=== PATIENT | male | born 1965 | race Asian ===

== ENCOUNTER 2020-04-02 08:04 | Day surgery (SDC) | payer MEDICAID, SELFPAY ==
[2020-03-27 15:52] VITALS: BMI 27.2
[2020-03-28 09:46] VITALS: BMI 27.3
--- NOTE | 2020-03-28 09:55 | HO.ANESPROP2 ---
Documented by User: Mariposa Smallsney 03/28/20 09:56 HPI - Anesthesia Eval Consult details Narrative: 55yo M for R Knee arthroscopy PMFSH Past Medical History Medical History Heartburn HTN (hypertension) Family History Family history of problems with anesthesia: Unobtainable Surgical History Surgical History History of oral surgery History of Problems with Anesthesia: Unobtainable Social History Social History Smoking Status: Former smoker Smoking Quit Date: 2017 Use of substances other than those prescribed or required for medical reasons: No Advance Directives: No Advance Directives Information Provided: Yes Advance Directives on File: No Meds Allergies Allergy/AdvReac Type Severity Reaction Status Date / Time No Known Allergies Allergy Verified 03/28/20 09:57 Home Medications Medication Instructions Recorded Confirmed Type valsartan-hydrochlorothiazide 1 tab PO DAILY 03/27/20 04/02/20 History cholecalciferol (vitamin D3) 25 mcg PO DAILY 03/28/20 04/02/20 History [Vitamin D3] vitamin B complex 1 tab PO DAILY 03/28/20 04/02/20 History Exam Exam Date and Time: March 28, 2020 0955 Height,Weight and Vital Signs: Height 5 ft 7 in Weight 79.379 kg Assessment and Plan Assessment Anesthesia Assessment: Chart Reviewed Documented by User: Riley Soriano MD 04/02/20 12:14 PMF Past Medical History Medical History Heartburn HTN (hypertension) Surgical History Surgical History History of oral surgery Social History Social History Smoking Status: Former smoker Smoking Quit Date: 2017 Use of substances other than those prescribed or required for medical reasons: No Advance Directives: No Advance Directives Information Provided: Yes Advance Directives on File: No Meds Allergies Allergy/AdvReac Type Severity Reaction Status Date / Time No Known Allergies Allergy Verified 03/28/20 09:57 Home Medications Medication Instructions Recorded Confirmed Type valsartan-hydrochlorothiazide 1 tab PO DAILY 03/27/20 04/02/20 History cholecalciferol (vitamin D3) 25 mcg PO DAILY 03/28/20 04/02/20 History [Vitamin D3] vitamin B complex 1 tab PO DAILY 03/28/20 04/02/20 History Exam Airway Mallampati Class: I TM Dist: >3cm Neck ROM: Full Loose/Missing/Broken Teeth: No Heart: rrr Lungs: nl Other: ao3 Assessment and Plan Assessment Anesthesia Assessment: Anesthesia Plan Discussed, Consent Obtained and Chart Reviewed Final Anesthetic Review NPO: Yes Final Preanesthetic Review: No Changes in Pt Med Stat, Meds & Allergies Reviewed, Consent Obtained/Reviewed, Med/Surg/Anes Hx Reviewed and Anes Risks/Benef Reviewed Patient Risk: Low Procedure Risk: Low Anesthetic Plan Anesthetic Plan: GA Disposition: Standard PACU
--- NOTE | 2020-04-02 08:18 | PC.NURSE ---
patient drank coffee at 6am with coffee mate in it. awaiting to hear from anesthesia for plan of care
[2020-04-02 08:31] VITALS: BP 132/73; PULSE 99; RESP 16; TEMP 36.8; O2SAT 96
[2020-04-02] MEDS: Lactated Ringers 1,000 ML 100 ML IVCONT (08:44)
[2020-04-02] MEDS: ceFAZolin Sodium/Dextrose,Iso 2 GM/50 ML PIGGYBACK IV (08:49)
--- NOTE | 2020-04-02 12:13 | MHC.SHP ---
Pre-Procedural Eval Section A The patient is an INPATIENT: No Changes since office visit: No Cold of Flu in the past 2 weeks, No New Medical Problems, No Changes in Medication and No Patient answered all questions The History & Physical has been completed within 30 days and I have reviewed it.: Yes Section B Chief Complaint: medial meniscus tear right knee Allergies: Allergies Allergy/AdvReac Type Severity Reaction Status Date / Time No Known Allergies Allergy Verified 03/28/20 09:57 Plan Patient has been examined and remains a candidate for the planned procedure
--- NOTE | 2020-04-02 12:57 | PM.OP ---
Brief Operative Note Date of procedure: 04/02/20 Pre-op diagnosis: right knee medial meniscus tear Post-op diagnosis: same Procedure: right knee with partial medialo meniscectomy Implants: none Surgeon: Mark Gilliam MD Anesthesia: GETA and local Tourniquet time (min): 15 IV fluids (mL): 500 Pathology: none sent Condition: stable Disposition: PACU
[2020-04-02 13:06] VITALS: BP 118/68; PULSE 99; RESP 16; TEMP 36.4; O2SAT 99
[2020-04-02 13:11] VITALS: BP 133/88; PULSE 97; RESP 16; O2SAT 99
[2020-04-02 13:16] VITALS: BP 123/76; PULSE 97; RESP 16; O2SAT 97
[2020-04-02 13:22] VITALS: BP 122/82; PULSE 91; RESP 16; TEMP 36.4; O2SAT 97
--- NOTE | 2020-04-02 14:12 | HO.POSTANES ---
Post Anesthesia Evaluation Post Anesthesia Evaluation Vital Signs: Vital Signs Temp Pulse Resp BP Pulse Ox 04/02/20 13:22 97.5 F 91 16 122/82 97 04/02/20 13:16 97 16 123/76 97 04/02/20 13:11 97 16 133/88 99 04/02/20 13:06 97.5 F 99 16 118/68 99 04/02/20 08:31 98.2 F 99 16 132/73 96 Anesthesia: General LMA Mental Status: Awake Pain Control: Satisfactory Nausea/Vomiting: None Hydration: Adequate Anesthesia-Related Issues: No Anes. Related Issues
== END 2020-04-02 14:00 | disposition home or self-care (01) ==
PROVIDERS: Orthopaedic Surgery; PCP Family Medicine; Visit Provider Internal Medicine
PROC: (CPT 29870; principal; 2020-04-02 09:50)
DX: S83.241A Other tear of medial meniscus, current injury, right knee, initial encounter (principal); M17.11 Unilateral primary osteoarthritis, right knee; X58.XXXA Exposure to other specified factors, initial encounter; Y93.9 Activity, unspecified; Y92.9 Unspecified place or not applicable; Y99.8 Other external cause status; I10 Essential (primary) hypertension; Z79.52 Long term (current) use of systemic steroids; Z79.891 Long term (current) use of opiate analgesic
CPT/HCPCS: 29881; J0171; J0690; J1100; J2405; J3010

== ENCOUNTER 2020-04-17 12:58 | Outpatient (REF) | payer MEDICAID, SELFPAY ==
--- NOTE | 2020-04-17 14:06 | XR_ITS ---
EXAMINATION: XR FOOT, RIGHT CLINICAL INFORMATION: Pain right foot. COMPARISON: None TECHNIQUE: AP, lateral, and oblique views of the right foot. FINDINGS: There is no visible acute fracture, dislocation or subluxation seen. The soft tissues are normal. The ankle mortise and subtalar joints are normal. There is a moderate size retrocalcaneal heel spur and a small calcaneal spur. XR/XR foot RT min 3V IMPRESSION: Unremarkable right foot exam.
== END 2020-04-17 12:59 | disposition home or self-care (01) ==
LOC: HO.XRAY 12:58
PROVIDERS: Absent Provider Family Medicine; PCP Family Medicine; Referring Provider Family Medicine; Visit Provider Physician Assistant
DX: M79.671 Pain in right foot (principal); Z98.890 Other specified postprocedural states
CPT/HCPCS: 73630; 99212

== ENCOUNTER 2020-05-02 07:31 | Day surgery (SDC) | payer MEDICAID, SELFPAY ==
[2020-05-01 08:28] VITALS: BMI 27.8
--- NOTE | 2020-05-01 09:57 | P.CONAN_ITS ---
Documented by User: Mariposa Chong 05/01/20 09:58 HPI - Anesthesia Eval Consult details Narrative: 55yo M for Colonoscopy [facility] Past Medical History Medical History Heartburn HTN (hypertension) Surgical History Surgical History History of oral surgery S/P arthroscopic partial medial meniscectomy Social History Social History Smoking Status: Never smoker Second Hand Smoke Exposure: No Use of substances other than those prescribed or required for medical reasons: No Advance Directives: No Advance Directives Information Provided: Yes Advance Directives on File: No Meds Allergies Allergy/AdvReac Type Severity Reaction Status Date / Time No Known Allergies Allergy Verified 04/17/20 13:04 Home Medications Medication Instructions Recorded Confirmed Type valsartan-hydrochlorothiazide 1 tab PO DAILY 03/27/20 04/29/20 History cholecalciferol (vitamin D3) 25 mcg PO DAILY 03/28/20 04/29/20 History [Vitamin D3] vitamin B complex 1 tab PO DAILY 03/28/20 04/29/20 History Exam Exam Date and Time: May 01, 2020 0957 Height,Weight and Vital Signs: Height 5 ft 7 in Weight 80.739 kg Assessment and Plan Assessment Anesthesia Assessment: Chart Reviewed Documented by User: Lilia Hyatt 05/02/20 08:39 [facility] Past Medical History Medical History Heartburn HTN (hypertension) Surgical History Surgical History History of oral surgery S/P arthroscopic partial medial meniscectomy Social History Social History Smoking Status: Never smoker Second Hand Smoke Exposure: No Use of substances other than those prescribed or required for medical reasons: No Advance Directives: No Advance Directives Information Provided: Yes Advance Directives on File: No Meds Allergies Allergy/AdvReac Type Severity Reaction Status Date / Time No Known Allergies Allergy Verified 04/17/20 13:04 Home Medications Medication Instructions Recorded Confirmed Type valsartan-hydrochlorothiazide 1 tab PO DAILY 03/27/20 04/29/20 History cholecalciferol (vitamin D3) 25 mcg PO DAILY 03/28/20 04/29/20 History [Vitamin D3] vitamin B complex 1 tab PO DAILY 03/28/20 04/29/20 History Exam Airway Mallampati Class: II TM Dist: >3cm Neck ROM: Full Assessment and Plan Assessment Anesthesia Assessment: Anesthesia Plan Discussed and Chart Reviewed Final Anesthetic Review NPO: Yes ASA Class: II Final Preanesthetic Review: No Changes in Pt Med Stat, Meds/Allgs Chart Reviewed, Consent Obtained/Reviewed and Anes Risks/Benef Reviewed Patient Risk: Low Procedure Risk: Low Assessment/Block/Sedation in SS: Assess/Block/Sedation-SS Anesthetic Plan Anesthetic Plan: MAC: Disposition: Standard PACU
[2020-05-02 07:51] VITALS: BP 125/79; PULSE 92; RESP 16; TEMP 36.6; O2SAT 97
[2020-05-02] MEDS: Lactated Ringers 1,000 ML 100 ML IVCONT (07:58)
--- NOTE | 2020-05-02 08:27 | MHC.SHP ---
Pre-Procedural Eval Section B Chief Complaint: SCREENING,ANEMIA Details of Present Illness: for screening colonoscopy - first time no GI complaints Relevant Family History (Specify if Yes): No Relevant Social History: None Present Medications: see Short Stay Collaborative assessment Medical History: No relevant PMH History of Previous Operations: No relevant previous surgery Allergies: Allergies Allergy/AdvReac Type Severity Reaction Status Date / Time No Known Allergies Allergy Verified 04/17/20 13:04 Review of Systems Sugical H&P ROS: Negative: Constitution, Cardiovascular, Respiratory, Neurological, Psychiatric, Hem-Onc, Allergic/Immunologic, Gastrointestinal, Genitourinary, Musculoskeletal, Integumentary, Endocrine and Eyes/Ears/Nose/Throat Exam Surgical H&P Exam: Normal: HEENT, Normal: Heart, Normal: Lungs, Normal: Extremities, Normal: Abdomen, Normal: Skin and Normal: Neurological Plan Diagnosis/Plan: Unchanged Patient has been examined and remains a candidate for the planned procedure
[2020-05-02 09:08] VITALS: BP 91/25; PULSE 93; RESP 16; O2SAT 97
--- NOTE | 2020-05-02 09:14 | PM.OP ---
Brief Operative Note Date of procedure: 05/02/20 Pre-op diagnosis: screening Post-op diagnosis: other (small polyp near cecum, diverticulosis, hemorrhoids) Procedure: colonoscopy Surgeon: Wilson Weeks MD Anesthesia: MAC Estimated blood loss (mL): 0 Pathology: other (polyp) Condition: stable Disposition: PACU
[2020-05-02 09:23] VITALS: BP 126/89; PULSE 93; RESP 16; O2SAT 97
--- NOTE | 2020-05-02 09:29 | OP_ITS ---
SURGEON: Wilson Weeks MD INDICATIONS: The patient is a 55-year-old male, who is here for his 1st screening colonoscopy. He understood the technique of the procedure. He was aware of the risks, benefits, and alternatives. PREOPERATIVE DIAGNOSIS: Colon cancer screening. POSTOPERATIVE DIAGNOSIS: PROCEDURE PERFORMED: Colonoscopy with polypectomy using hot snare. ESTIMATED BLOOD LOSS: COMPLICATIONS: ANESTHESIA: ASSISTANTS: SPECIMENS: POSTOPERATIVE DIAGNOSES: 1. Small polyp about 4 mm close to the cecum at the ileocecal valve. 2. Occasional diverticula throughout the colon. 3. Internal and external hemorrhoids. DESCRIPTION OF PROCEDURE: He was brought to the operating room, placed in left lateral decubitus position under monitored anesthesia care. A full digital rectal exam was done. He did have some hemorrhoidal tissue, but no induration or any lesions. I inserted the tip of the Olympus colonoscope gently through the anal orifice and advanced with insufflation all the way to the cecum. The cecum was intubated. The cecum was identified by visualization of the ileocecal valve as well as appendiceal orifice. The cecal mucosa was unremarkable. Near the ileocecal valve, there was note of the polyp about 4 mm in size. This was removed using a hot snare. I proceeded to continue to withdraw the scope with careful examination of the entire colonic mucosa being done with scope withdrawal. The patient did have some layer of thin, but sticky stool on the colonic mucosa. We had to do a lot of irrigation, but it was unlikely that any lesion may have been missed. There was note of occasional diverticula throughout the colon. The rectum was unremarkable. He had internal and external hemorrhoid columns in the anal canal. The scope was then withdrawn completely with de-sufflation. He tolerated procedure well. There were no complications noted. In view of the layer of thin stool in the right colon, I would recommend another colonoscopy in the next 5 years. MD TIGRE Chavez/ANAL / [id number]
[2020-05-02 09:38] VITALS: BP 126/87; PULSE 81; RESP 16; TEMP 36.1; O2SAT 97
--- NOTE | 2020-05-02 10:10 | HO.POSTANES ---
Post Anesthesia Evaluation Post Anesthesia Evaluation Vital Signs: Vital Signs Temp Pulse Resp BP Pulse Ox 05/02/20 09:38 97 F 81 16 126/87 97 05/02/20 09:23 93 16 126/89 97 05/02/20 09:08 93 16 91/25 L 97 05/02/20 07:51 97.8 F 92 16 125/79 97 Anesthesia: Monitored Mental Status: Awake Pain Control: Satisfactory Nausea/Vomiting: None Hydration: Adequate Anesthesia-Related Issues: No Anes. Related Issues
== END 2020-05-02 10:30 | disposition home or self-care (01) ==
PROVIDERS: PCP Family Medicine; Visit Provider Surgery
PROC: 0DJD8ZZ Inspection of Lower Intestinal Tract, Via Natural or Artificial Opening Endoscopic (ICD-10-PCS; CPT 45378; principal; 2020-05-02 08:30)
DX: Z12.11 Encounter for screening for malignant neoplasm of colon (principal); D12.0 Benign neoplasm of cecum; K57.30 Diverticulosis of large intestine without perforation or abscess without bleeding; K64.8 Other hemorrhoids; K64.4 Residual hemorrhoidal skin tags; I10 Essential (primary) hypertension; R12 Heartburn; Z79.899 Other long term (current) drug therapy
CPT/HCPCS: 45385; 88305; J2405; J3010

== ENCOUNTER → 2020-05-14 08:52 | Outpatient (BNVA) | payer MEDICAID, SELFPAY | PROVIDERS: PCP Family Medicine; Visit Provider Surgery | DX: K57.30 Diverticulosis of large intestine without perforation or abscess without bleeding (principal); K64.9 Unspecified hemorrhoids; D12.6 Benign neoplasm of colon, unspecified; Z98.890 Other specified postprocedural states | CPT/HCPCS: 99202 ==

== ENCOUNTER 2020-07-01 07:41 | Outpatient (REF) | payer MEDICAID, SELFPAY ==
--- NOTE | 2020-07-01 07:46 | XR_ITS ---
EXAMINATION: XR CHEST CLINICAL INFORMATION: Positive TB test COMPARISON: None TECHNIQUE: 2 views of the chest were obtained. FINDINGS: The cardiac and mediastinal contours are normal. There is a 5 mm right upper lung pulmonary nodule which may represent a calcified granuloma. The lungs are otherwise clear. There is no pleural effusion or pneumothorax. There are mild degenerative changes of the spine and curvature of the mid to lower thoracic spine to the right. XR/XR chest 2V IMPRESSION: 5 mm right pulmonary nodule. This may represent a calcified granuloma. No evidence of active TB in the chest.
== END 2020-07-01 07:42 | disposition home or self-care (01) ==
LOC: HO.XRAY 07:41
PROVIDERS: Visit Provider Family Medicine
DX: R76.12 Nonspecific reaction to cell mediated immunity measurement of gamma interferon antigen response without active tuberculosis (principal)
CPT/HCPCS: 71046

== ENCOUNTER → 2020-07-04 14:49 | Outpatient (BNVA) | payer MEDICAID, SELFPAY | PROVIDERS: PCP Family Medicine; Visit Provider Physician Assistant Medical | DX: Z76.89 Persons encountering health services in other specified circumstances (principal) | CPT/HCPCS: G0296 ==

== ENCOUNTER 2020-07-24 07:52 | Outpatient (REF) | payer MEDICAID, SELFPAY ==
--- NOTE | 2020-07-24 07:55 | CT_ITS ---
EXAMINATION: CT CHEST SCREENING CLINICAL INFORMATION: Nicotine dependence. COMPARISON: Chest x-ray 07/01/2020 TECHNIQUE: Multidetector volumetric CT imaging of the chest is performed without contrast using low dose technique. Additional 2D coronal and sagittal reformatted images and axial 3D maximum intensity projection (MIP) images are generated on the CT workstation. This CT examination was performed using dose optimization techniques as appropriate, variously including the following: *Automated exposure control *Adjustment of mA and/or kV according to patient size (this includes techniques or standardized protocols for targeted exams where dose is matched to indication/reason for exam; i.e. extremities or head) *Use of iterative reconstruction technique DLP: 60 mGy-cm FINDINGS: LUNGS: The lungs are well expanded and clear of acute pneumonic process. There is a 5 mm nodule right lower lobe superior segment axial image 199/6. No additional nodules seen. There is no mass or ground-glass density. Minimal atelectatic changes are seen in the lingula. MEDIASTINUM: The thyroid lobes are symmetrical and normal. The central trachea and the bronchi are widely patent. The heart size and the great vessels are normal caliber. No pericardial effusion seen. There is no abnormal mediastinal lymph nodes. PLEURA: There is no pleural effusion. No pleural mass or thickening. AXILLA: No lymphadenopathy. UPPER ABDOMEN: There are several hypodense liver lesions. No intrahepatic ductal dilatation seen. Visualized spleen, pancreas and bilateral adrenal glands are unremarkable. There is mild constipation. OSSEOUS STRUCTURES: No lytic or sclerotic process seen. CT/CT lung screening IMPRESSION: 5 mm calcified nodule right lower lobe superior segment. Findings correspond to the chest x-ray nodule from 07/01/2020. The rest of the lungs are clear. ASSESSMENT: Lung-RADS category 2: Benign. RECOMMENDATION: Low-dose annual CT chest.
== END 2020-07-24 07:53 | disposition home or self-care (01) ==
LOC: HO.CT 07:52
PROVIDERS: Visit Provider Physician Assistant Medical
DX: Z12.2 Encounter for screening for malignant neoplasm of respiratory organs (principal); F17.210 Nicotine dependence, cigarettes, uncomplicated
CPT/HCPCS: 71271

== ENCOUNTER 2022-09-20 06:13 | Outpatient (REF) | payer OTHER, SELFPAY ==
--- NOTE | ~2022-09-20 | CT_ITS ---
EXAMINATION: CT ABDOMEN AND PELVIS WITH CONTRAST CLINICAL INFORMATION: 57-year-old male with epigastric pain. COMPARISON: None available. TECHNIQUE: Multidetector volumetric images were obtained from the superior aspect of the liver through the pubic symphysis following administration 85 mL of Omnipaque 350 intravenous contrast. Sagittal and coronal reformatted images were obtained on the technologist's workstation. Oral contrast: Yes This CT examination was performed using dose optimization techniques as appropriate, variously including the following: *Automated exposure control *Adjustment of mA and/or kV according to patient size (this includes techniques or standardized protocols for targeted exams where dose is matched to indication/reason for exam; i.e. extremities or head) *Use of iterative reconstruction technique DLP: 363 mGy-cm FINDINGS: Visualized lung bases demonstrate mild dependent atelectasis. The liver is normal in size but demonstrates diffusely decreased attenuation. There are several small hypodense foci throughout the liver, some of which demonstrate cystic characteristics, however, most of which are too small to accurately characterize. The gallbladder is normal in appearance. The pancreas, spleen and adrenal glands are unremarkable. Symmetrically enhancing kidneys. No hydronephrosis. Normal caliber loops of small and large bowel. Moderate colonic stool burden. Normal appendix. Normal caliber abdominal aorta. No retroperitoneal lymphadenopathy. The bladder is normal in appearance. The prostate gland is mildly enlarged. Small fat-containing right inguinal hernia. No gross free pelvic fluid. No inguinal lymphadenopathy. Scoliotic and moderate degenerative changes of the spine. CT/CT abdomen pelvis w IV con IMPRESSION: 1. Moderate colonic stool burden suggesting constipation. 2. Diffusely decreased liver attenuation suggesting hepatic steatosis. Correlation with liver enzymes recommended. 3. There are several small hypodense foci throughout the liver, some of which demonstrate cystic characteristics, however, most of which are too small to accurately characterize. Fleischner guidelines were followed.
[2022-09-20] MEDS: iohexoL 350 MG/ML 100 ML INFUS..BTL IV (08:32)
[2022-09-21 10:11] LABS: Creatinine POC 0.7 mg/dL (0.5-1.4); GFR POC > 60
== END 2022-09-20 06:14 | disposition home or self-care (01) ==
LOC: HO.CT 06:13
PROVIDERS: Visit Provider Family Medicine
DX: R68.81 Early satiety (principal)
CPT/HCPCS: 74177; 82565; Q9967